=== PATIENT | male | born 1970 | race Caucasian/White ===

== ENCOUNTER 2019-02-28 11:08 | Emergency (ER) | payer SELFPAY ==
[~2019-02-28] VITALS: Ht 177.8 cm; Wt 85.0 kg
--- NOTE | 2019-02-28 11:26 | NUR ---
pt biba from [facility]. found down unresponsive. +etoh. 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 all other vss. piv established en route. pt nonresponsive to any stimulation at this time. etco2 placed. Dr. Richter to bs for assessment. awaiting orders.
--- NOTE | 2019-02-28 11:40 | NUR ---
security to bs. 2 bottles vodka disposed of.
[2019-02-28 11:57] LABS: BASOPHILS # (AUTO) 0.03 x10^3/uL (0-0.1); BASOPHILS % (AUTO) 0 % (0-1); EOSINOPHILS # (AUTO) 0.22 x10^3/uL (0-0.4); EOSINOPHILS % (AUTO) 2 % (1-7); LYMPHOCYTES # (AUTO) 2.42 x10^3/uL (1-3.4); LYMPHOCYTES % (AUTO) 21 % (22-44); MD NO; MEAN CORPUSCULAR HEMOGLOBIN 31.7 pg (27.5-34.5); MEAN CORPUSCULAR HGB CONC 33.7 g/dL (33.2-36.2); MEAN CORPUSCULAR VOLUME 93.9 fL (81-97); MEAN PLATELET VOLUME 7.8 fL (7.4-10.4); MONOCYTES # (AUTO) 0.17 x10^3/uL (0.2-0.8); MONOCYTES % (AUTO) 2 % (2-9); NEUTROPHILS # (AUTO) 8.84 x10^3/uL (1.8-6.8); NEUTROPHILS % (AUTO) 76 % (42-75); PLATELET COUNT 261 x10^3/uL (130-400); RED BLOOD COUNT 5.14 x10^6/uL (4.38-5.82); RED CELL DISTRIBUTION WIDTH 12.5 % (9.4-14.8)
--- NOTE | 2019-02-28 12:00 | NUR ---
pt undressed and placed in gown. vss. pt able to open eyes to loud sounds. no other responses noted.
[2019-02-28 12:09] LABS: ALBUMIN 3.5 g/dL (3.4-5.0); ANION GAP 8 mmol/L (5-15); CALCIUM 7.4 mg/dL (8.5-10.1); CHLORIDE 110 mmol/L (98-107); CREATININE 0.74 mg/dL (0.7-1.3)
--- NOTE | 2019-02-28 13:08 | NUR ---
PT IN [facility] WITH EYES CLOSED. VSS. NO CHANGES IN MENTAL STATES. NO NEEDS EXPRESSED. CALL LIGHT WITHIN REACH.
--- NOTE | 2019-02-28 14:11 | NUR ---
PT RESTING WITH EYES CLOSED. VSS. WILL CONTINUE TO MONITOR.
--- NOTE | 2019-02-28 15:04 | NUR ---
PT RESTING IN ROOM. VSS. PT NOW ABLE TO OPEN EYES AND ATTEMPT TO TALK. PT EDUCATED ON POC. URINAL PROVIDED TO BE USED NEEDED. WILL CONTINUE TO MONITOR.
--- NOTE | 2019-02-28 16:07 | NUR ---
PT RESTING IN ROOM. VSS. PT NOW ABLE TO OPEN EYES AND ATTEMPT TO TALK. WILL CONTINUE TO MONITOR.
[2019-02-28 17:23] VITALS: BP 114/79
--- NOTE | 2019-02-28 17:49 | NUR ---
iv pulles pt getting dressed
--- NOTE | 2019-02-28 18:10 | NUR ---
pt unable to stay awake to get dressed. pt resting with eyes closed on gurney. wctm.
--- NOTE | 2019-02-28 20:33 | NUR ---
Patient/Caregiver given discharge instructions and they have confirmed that they understand the instructions. Patient ambulatory with steady gait.
== END 2019-02-28 20:35 | disposition home or self-care (01) ==
LOC: ED 16:57
DX: F10.220 Alcohol dependence with intoxication, uncomplicated (principal)
CPT/HCPCS: 36415; 80048; 80307; 82040; 85025; 93005; 99284